=== PATIENT | female | born 1985 | race Caucasian/White ===

== ENCOUNTER 2019-12-27 09:25 | Inpatient (IN) | payer MEDICAID, SELFPAY ==
[2019-12-27] VITALS (18 sets, daily range): BP systolic 98–120; BP diastolic 45–81; PULSE 68–101; RESP 16–18; TEMP 36.2–37.1; O2SAT 95–100; BMI 37.3
--- NOTE | 2019-12-27 10:17 | PM.HP ---
Providers/Chief Complaint Admitting Physician: Win Bonds MD Chief Complaint: ob triage History of Present Illness Jyoti Allen is a 34 year old female who is a 10 para 5 with 4 SAB and 5 living children. This patient began care for this in mid October to see this physician. This was a late entry into care. At that time she was found to be very large and follow-up ultrasound demonstrated a twin . Ultrasound done on 12/23/2019 demonstrated twins with twin A being 34 weeks and 3 days and twin B at 34 weeks and 4 days. The patient had no idea when her last menstrual period truly was. She began having increased discomfort about 2 days ago. This seemed to come and go. And then again yesterday they were little stronger off and on through the day. This morning around 530 she began having increasing pain and discomfort and was brought to the [facility] Labor and Delivery department. Upon arrival, she was found to be approximately 5 cm dilated. At the time of ultrasound the ultrasound listed her cervix to be closed and about 4-1/2 cm in length. She is edvin irregularly and has mild discomfort from this. Presently the twins look good on the monitor. She does have a history of previous section for distress in January 2019. Secondary to previous section a repeat section has been discussed with the patient and spouse. Review of Systems Const: Reports: fatigue; Denies: fever, chills, change in appetite or change in weight Card: Reports: edema (Mild edema of ankles.); Denies: chest pain, palpitations or irregular heart rhythm Resp: Denies: shortness of breath or productive cough GI: Reports: abdominal pain (Contractions off and on.); Denies: nausea, vomiting or heartburn/indigestion : Reports: pelvic pain ( and having contractions.) Musc: Denies: neck pain or back pain Neuro: Denies: headache, weakness in extremities, difficulty walking or difficulty communicating thoughts Psych: Reports: anxiety (Mild.) Endo: Denies: excessive urination, excessive thirst or tired all the time PFS Acute Female Reproductive History: : 13 Vitals/I&O/Wt Last Vital Signs Pulse 101 H 12/27/19 09:43 BP 120/81 12/27/19 09:43 Weight last 48 hrs Weight 107.955 kg Physical Exam Const: COMMON NORMALS: no apparent distress, average body habitus, oriented x3 and well nourished HENMT: COMMON NORMALS: moist oral mucous membranes Neck/C-Spine: COMMON NORMALS: full ROM and no lymphadenopathy Chest: COMMONS NORMALS: inspection of chest normal Resp: COMMON NORMALS: normal respiratory effort, no retractions, no use of accessory muscles and clear to auscultation bilaterally Cardio: COMMON NORMALS: no JVD, regular rate, regular rhythm, S1 normal heart sound, S2 normal heart sound, no murmurs and peripheral pulses 2+ throughout GI: INSPECTION: Yes other (Patient is with a fundal height around 38 cm.) : OB/EXTERNAL & SPECULUM: external exam normal; no bleeding MANUAL OB EXAM: dilated 5 cm, effaced 75% and station -1 Back/Pelvis: COMMON NORMALS: no CVA tenderness Extremity: COMMON NORMALS: normal to inspection, full ROM and no calf tenderness; negative for no pedal edema Neuro: COMMON NORMALS: oriented x3, CN's II-XII intact bilaterally, moves all extremities, no focal motor deficits and no sensory deficits noted Psych: COMMON NORMALS: mental status grossly normal, thought process normal, cooperative and affect normal Skin: GENERAL SKIN EXAM: no rashes or lesions noted A&P Assessment and plan (1) Twin in third trimester: Patient just found out last week that she was having twins. She has no definite idea of how far along her is. She was a late entry into care with us her first visit to this physician being on November 19. She has been noncompliant with follow-up visits. She has been seen a total of 3 times during this . She has a previous section and desires a tubal ligation. Status: Acute (2) Active labor: Patient's contractions became more intense early this morning around 5:30 AM. Presently, it appears she is in active labor at 5 cm dilated and we will probably proceed with repeat section. Maternal blood type is O+ with antibody screen negative. The remainder of the lab work was normal including negative drug screen. Dr. Stephen has been consulted for assistance in providing the section. Status: Acute Attestations Medical Necessity Statement*: This patient is with twins in active labor. She is going to require repeat section and she requires inpatient hospitalization. I expect her hospital stay to probably be greater than 2 midnights. Time Spent in Patient Care: 16 - 35 minutes Coding Level of Care Code Acute Design Technology Professor for Chg Fwd Exam Comprehensive Diagnoses Twin in third trimester O30.003 Active labor O60.10X0
[2019-12-27] MEDS: lactated ringers 1,000 ML 999 ML IV (10:20)
[2019-12-27] MEDS: metoclopramide 5 mg/mL SDV 2 mL 10 MG IVP (10:23)
[2019-12-27] MEDS: famotidine 20 mg/2 mL INJ IVP (10:24)
[2019-12-27] MEDS: citric acid-sodium citrate 30 mL UDC PO (10:24)
[2019-12-27 10:35] LABS: Basophils % 0.3 %; Eosinophils % 0.2 %; Hematocrit 39.4 % (37.0-47.0); Hemoglobin 13.2 g/dL (11.5-15.3); Lymphocytes # 1.7 10^3/uL (0.8-4.8); Lymphocytes % 12.5 %; Mean Corpuscular HGB Conc 33.5 g/dL (30.0-36.0); Mean Corpuscular Hemoglobin 31.7 pg (28.0-34.0); Mean Corpuscular Volume 94.5 fL (81-99); Mean Platelet Volume 10.6 fL (7.4-10.4); Monocytes # 0.6 10^3/uL (0.2-0.9); Monocytes % 4.2 %; Neutrophils # 10.9 10^3/uL (1.8-7.7); Neutrophils % 82.3 %; Nucleated Red Blood Cells % 0 %; Platelet Count 134 10^3/cmm (130-400); Red Blood Count 4.17 10^6/uL (4.1-5.3); Red Cell Distribution Width 13.5 % (12.1-15.1); White Blood Count 13.2 10^3/uL (4.0-10.0)
--- NOTE | 2019-12-27 10:39 | P.ANESASSM_ITS ---
Pre-Anesthetic Assessment Pre-Anesthetic Assessment: Height/Weight: Height 1.7 m Weight 107.955 kg Pulse BP 101 H 120/81 12/27/19 09:43 12/27/19 09:43 Preop Diagnosis: prior c section Familial anesthetic complications: none Was Beta Johny taken within 24 hours: N/A (0000) Last Intake: 00:00 Social: Pack years: 1 pack/day Exam: Pre-Anes Outpt Exam: alert, oriented x 3, clear to auscultation bilaterally and regular rate & rhythm Airway: Submandibular: WNL Cervical ROM: WNL MP: 2 Dentition: Chipped and Loose History/ROS: No significant history except as noted and No significant complaints Pulmonary: Pulmonary: None reported CV/HEM: CV/HEM: None reported : : None reported Hepatic: Hepatic: None reported GI: GI: None reported Metabolic: Metabolic: None reported Musc/skel: Musc/skel: None reported Neuropsych: Neuropsych: None reported Anesthetic Plan: ASA status: 2 Anesthesia: Anesthesia Evaluation and Regional (specify below) Risk of > 500 ml blood loss (7ml/kg in children): No Meds/Allergies Current Medications: Current Medications Generic Name Dose Route Start Last Admin Trade Name Freq PRN Reason Stop Dose Admin Lactated Ringer's 1,000 mls @ 999 m ls/hr 12/27/19 09:51 12/27/19 10:20 Lactated Ringers IV 12/27/19 10:51 999 mls/hr .Q1H1M ONE Administration PFSH Anesthesia Female Reproductive History: : 13 Data Anesthesia CBC & Chem 7: 12/27/19 10:11 Other Labs: Laboratory Results - last 48 hr 12/27/19 10:11 WBC 13.2 H RBC 4.17 Hgb 13.2 Hct 39.4 MCV 94.5 MCH 31.7 MCHC 33.5 RDW 13.5 Plt Count 134 MPV 10.6 H Neut % (Auto) 82.3 Lymph % (Auto) 12.5 [place] % (Auto) 4.2 Eos % (Auto) 0.2 Baso % (Auto) 0.3 Neut # (Auto) 10.9 H Lymph # (Auto) 1.7 [place] # (Auto) 0.6 Eos # (Auto) 0.0 Baso # (Auto) 0.0 Nucleated RBC % (auto) 0 Nucleated RBCs # 0.0 Cardiac Studies: No Data to Display
[2019-12-27 10:46] LABS: Amphetamines Screen Urine Negative (Negative); Barbiturates Screen Urine Negative (Negative); Benzodiazepines Screen Urine Negative (Negative); Cocaine Screen Urine Negative (Negative); Opiate Screen Urine Negative (Negative); PCP Screen Urine Negative (Negative); THC Screen Urine Negative (Negative)
--- NOTE | 2019-12-27 12:20 | PM.OP ---
Operative Report Date of procedure: December 27, 2019 Pre-op Diagnosis: prior c section, desires sterilization, twin gestation Post-op diagnosis: same Procedure Done: 1. Repeat low transverse section 2. Bilateral tubal ligation, intraoperative Specimens removed/disposition: 1. Baby A, who is 5 pounds 15 ounces Apgars of 8 and 9, male 2. Baby B who weight was 5 pounds 8 ounces with Apgars of 9 and 9, female 3. 2 placentas with three-vessel cords delivered intact 4. Bilateral fallopian tube segments with the right segment being tagged Pathology: other Pathology: Bilateral fallopian tube segments with the right segment being tagged Both placentas with amniotic sac Surgeon: Db Stephen Patented Hogshead Assembler: Win Bonds Anesthesia: Other (Spinal) Estimated blood loss (mL): 600 Complications: None Condition: stable Disposition: floor Brief History: See history and physical dictated by Dr. Bonds Procedure: The patient was brought back to the operating room where she was prepped and draped in usual sterile fashion. Anesthesia was found to be adequate. A lower transverse skin incision was then made with a #10 blade. I then dissected down to the underlying subcutaneous tissue until arriving at the prerectal fascia. The fascia was then nicked with the scalpel bilaterally. The fascial incisions were then carried laterally with Sanchez scissors. Attention was then turned to the superior aspect of the incision which was grasped with kochers and tented up away from the underlying rectus abdominis muscles. The muscles were then dissected away from the fascia manually, and later with Sanchez scissors. Attention was then turned to the inferior aspect of the incision, and the fascia was dissected away from the underlying muscle in similar fashion. The rectus abdominis muscles were then spread manually. The peritoneum was entered manually. Excellent visualization of the uterus was noted. A lower transverse uterine incision was then made with a #10 blade. Upon arriving at the intrauterine cavity, the uterine incision was then extended manually. The amniotic sac of baby A was ruptured with an Allis. The infant was noted to be in vertex position. The baby was delivered without difficulty. After delivery of the head, the mouth and nose were suctioned at the site of the incision. There was no meconium. There was no nuchal cord. The baby was then handed to the waiting nurses. The amniotic sac of baby B was then ruptured. Her head was delivered without difficulty. Her mouth and nose was suctioned. The remainder of the body was then delivered and placed on the abdomen. The cord was cut and clamped. The baby was then handed to the waiting nurse. Both placentas were removed intact. The uterus was externalized. The intrauterine cavity was cleansed of any remaining debris. The uterine incision was reapproximated in 2 layers. The first layer was performed with 0 Vicryl in a running locked stitch. The second layer was an imbricating stitch also using 0 Vicryl. Attention was then turned to the right fallopian tube which was ligated cut and cauterized in a modified Josefina fashion with 0 chromic. Attention was then turned to the left fallopian tube which was also ligated cut and cauterized in similar fashion. The uterine incision was once and examined. Oozing was noted on the left portion of the uterine incision. A single [id number] stitch was then performed with 0 Vicryl. Excellent hemostasis was noted. The uterus was replaced into the abdomen. The peritoneum was then irrigated with warm saline. I reexamined the uterine incision and found it to be hemostatic. The rectus abdominis muscles were then reapproximated using 0 Vicryl in a running stitch. The fascia was then reapproximated using 0 Vicryl in running stitch. The subcutaneous tissue was then reapproximated using 0 Vicryl in a running stitch. The skin was reapproximated using 4-0 Vicryl in a subcuticular stitch. Benzoin and Steri-Strips were placed.. A sterile dressing was placed. All counts were correct x2. Both the mother and baby were in stable condition.
--- NOTE | 2019-12-27 17:19 | PC.NURSE ---
DFS CALL MADE DUE TO LACK OF CARE, ONLY SAW DR SOLER TWICE AND JUST FOUND OUT THAT THEY WERE HAVING TWINS SUNDAY.
[2019-12-27] MEDS: docusate sodium 100 mg Capsule PO (17:31)
[2019-12-27] MEDS: ketorolac 30 mg/mL INJ IVP (17:31)
[2019-12-27] MEDS: ferrous sulfate EC 325 mg Tablet PO (17:31)
[2019-12-27] MEDS: dextrose 5%-lactated ringers 1,000 ML 125 ML IV (17:31)
[2019-12-28 01:01] LABS: Hemoglobin 11.4 g/dL (11.5-15.3); Mean Corpuscular HGB Conc 34.5 g/dL (30.0-36.0); Mean Corpuscular Volume 92.7 fL (81-99); Mean Platelet Volume 10.9 fL (7.4-10.4); Platelet Count 93 10^3/cmm (130-400); Red Blood Count 3.56 10^6/uL (4.1-5.3); Red Cell Distribution Width 13.3 % (12.1-15.1); White Blood Count 9.4 10^3/uL (4.0-10.0)
[2019-12-28 05:11] VITALS: BP 95/59; PULSE 80; RESP 16; TEMP 36.8; O2SAT 96
--- NOTE | 2019-12-28 08:24 | ANE.PACU2 ---
 Inpatient post-anesthesia follow up: Airway intact: Yes Vital signs: Temperature 98.3 F Pulse Rate 80 Respiratory Rate 16 Blood Pressure 95/59 Pulse Oximetry 96 Oxygen Delivery Me thod Room Air Oxygen Flow Rate Fraction of Inspir ed Oxygen Hydration adequate: Yes Nausea and vomiting: No Mental status: Baseline Additional Comments: no lower extremity weaknes, no signs of infection at site, no headaches
--- NOTE | 2019-12-28 08:25 | PM.OBGYPN ---
FRONT DESK COORDINATOR Subjective Subjective: Interval history: She is in no acute distress Lungs are clear auscultation bilaterally Her heart has a regular rate and rhythm Her fundus is below the umbilicus and firm Her dressing is clean, dry and intact Her extremities have trace edemaThe patient is doing very well. She has had minimal bleeding. She has been getting up and ambulating. She is been breast-feeding well. She has had no complaints. Labor: Station: -1 Amniotic Membrane Status: Intact Monitor Mode: External Contraction Pattern: Regular Vitals/I&O/Wt Last Vital Signs Temp 98.3 F 12/28/19 05:11 Pulse 80 12/28/19 05:11 Resp 16 12/28/19 05:11 BP 95/59 12/28/19 05:11 Pulse Ox 96 12/28/19 05:11 12/27/19 12/28/19 12/28/19 22:59 06:59 14:59 Intake Total 2152.083 / 4152.083 1397.917 / 5550.000 Output Total 410 / 1160 3100 / 4260 Balance 1742.083 / 2992.083 -1702.083 / 1290.000 Weight last 48 hrs Weight 238 lb Physical Exam Narrative: EXAM NARRATIVE: She is in no acute distress Lungs are clear auscultation bilaterally Her heart has a regular rate and rhythm Her fundus is below the umbilicus and firm Her dressing is clean, dry and intact Her extremities have trace edema Urinary Catheter Management^: Cantor: Cath Placed During This Visit: yes, but has since been removed by the nurse Reason for Continuing Indwelling Catheter: Decision to DC Catheter Urinary Catheter Date of Insertion: 12/27/19 Urinary Catheter Time of Insertion: 11:05 Date Urinary Catheter Removed: 12/28/19 Time Urinary Catheter Discontinued: 05:11 Data : 12/28/19 00:16 A&P Assessment and plan (1) Twin in third trimester: Status: Acute (2) Status post : Status: Acute (3) Thrombocytopenia affecting : This is probably not clinically significant. We will recheck a CBC on her in the morning to make sure that has not progressive. Status: Acute Attestations Medical Necessity Statement*: I anticipate the patient will have a routine post hospital stay and will be discharged tomorrow morning as long as her CBC does not show marked change in her platelet counts. Coding Level of Care Code Acute Access Specialist for Chg Fwd Diagnoses Twin in third trimester O30.003 Status post Z98.891 Thrombocytopenia affecting O99.119; D69.6
[2019-12-28] MEDS: ferrous sulfate EC 325 mg Tablet PO (09:26)
[2019-12-28] MEDS: docusate sodium 100 mg Capsule PO ×2 (09:26→18:20)
[2019-12-28] MEDS: prenatal vitamin Capsule 1 CAP PO (09:26)
[2019-12-28 09:29] VITALS: BP 115/77; PULSE 80; RESP 16; TEMP 36.6
--- NOTE | 2019-12-28 14:10 | PC.NURSE ---
DFS worker called in to room to speak with mom, Jazlyn states that there will be a group meeting with her supervisor of communications tomorrow at some point in the hospital before mom and babies can be discharged.
[2019-12-28 16:32] VITALS: BP 112/74; PULSE 81; RESP 16; TEMP 36.5
[2019-12-28 21:26] VITALS: BP 113/78; PULSE 86; RESP 16
[2019-12-29 03:45] VITALS: BP 128/75; PULSE 62; RESP 16; TEMP 36.4
[2019-12-29 05:24] LABS: Basophils % 0.3 %; Eosinophils # 0.1 10^3/uL (0.0-0.8); Eosinophils % 1.2 %; Hematocrit 33.7 % (37.0-47.0); Hemoglobin 10.9 g/dL (11.5-15.3); Lymphocytes # 1.4 10^3/uL (0.8-4.8); Lymphocytes % 20.1 %; Mean Corpuscular HGB Conc 32.3 g/dL (30.0-36.0); Mean Corpuscular Hemoglobin 31.4 pg (28.0-34.0); Mean Corpuscular Volume 97.1 fL (81-99); Mean Platelet Volume 10.4 fL (7.4-10.4); Monocytes # 0.4 10^3/uL (0.2-0.9); Monocytes % 5.5 %; Neutrophils % 72.3 %; Nucleated Red Blood Cells % 0 %; Platelet Count 106 10^3/cmm (130-400); Red Blood Count 3.47 10^6/uL (4.1-5.3); Red Cell Distribution Width 13.8 % (12.1-15.1); White Blood Count 6.9 10^3/uL (4.0-10.0)
[2019-12-29] MEDS: prenatal vitamin Capsule 1 CAP PO (09:01)
[2019-12-29] MEDS: docusate sodium 100 mg Capsule PO (09:01)
[2019-12-29] MEDS: fluoxetine 20 mg Capsule PO (09:02)
--- NOTE | 2019-12-29 09:30 | PM.OBGYDC ---
Discharge Providers CUSTOMER SALES DISTRIBUTOR Date of Admission: 12/27/19 09:25 Date of Discharge: 12/29/19 Attending Provider at Admission: Win Bonds MD Attending Provider at Discharge: Db Stephen MD Primary Care Provider: Win Bonds MD Diagnoses at Discharge Discharge Diagnosis (1) Twin in third trimester: Status: Acute (2) Status post : Status: Acute (3) Thrombocytopenia affecting : Status: Acute Reason for Visit Reason for Visit: Reason For Visit: ob triage Hospital Course Hospital Course: The patient is a 34-year-old multigravida female who has a known twin with late care. As such her actual gestational age was unknown. She presented to the hospital in active labor with the cervix being dilated to 5 cm. She was assumed to be around 35 to 37 weeks range. Because she decided to have a due to a previous , we elected to proceed with a . The was unremarkable. The twins were delivered and cared for by Dr. Bonds. Her course was also unremarkable. Her bleeding was within normal limits. She ambulated without difficulty. Her pain was well controlled. She both breast-fed and bottle-fed the babys. She also did have some mild thrombocytopenia which was improving on the last day of her hospitalization. Physical Exam Narrative: EXAM NARRATIVE: She is in no acute distress Lungs are clear auscultation bilaterally Her heart has a regular rate and rhythm Her fundus is below the umbilicus and firm Her dressing is clean, dry and intact Her extremities have trace edema Urinary Catheter Management^: Cantor: Cath Placed During This Visit: yes, but has since been removed by the nurse Reason for Continuing Indwelling Catheter: Decision to DC Catheter Urinary Catheter Date of Insertion: 12/27/19 Urinary Catheter Time of Insertion: 11:05 Date Urinary Catheter Removed: 12/28/19 Time Urinary Catheter Discontinued: 05:11 Discharge Data Data Completed and Pending: Pending at discharge Category Date Time Status Pathology: Surgic al [PTH] Routine Pth 12/27/19 13:53 Ordered Pathology: Surgic al [PTH] Routine Pth 12/28/19 08:32 Ordered Labs from last 24 hours 12/29/19 05:07 WBC 6.9 RBC 3.47 L Hgb 10.9 L Hct 33.7 L MCV 97.1 MCH 31.4 MCHC 32.3 RDW 13.8 Plt Count 106 L MPV 10.4 Neut % (Auto) 72.3 Lymph % (Auto) 20.1 [place] % (Auto) 5.5 Eos % (Auto) 1.2 Baso % (Auto) 0.3 Neut # (Auto) 5.0 Lymph # (Auto) 1.4 [place] # (Auto) 0.4 Eos # (Auto) 0.1 Baso # (Auto) 0.0 Nucleated RBC % (a uto) 0 Nucleated RBCs # 0.0 Vitals: Last Vital Signs Temp 97.5 F L 12/29/19 03:45 Pulse 62 12/29/19 03:45 Resp 16 12/29/19 03:45 BP 128/75 12/29/19 03:45 Pulse Ox 96 12/28/19 05:11 Discharge Plan Discharge Patient Disposition: Home, Self-Care Condition: Stable Prescriptions: New hydrocodone-acetaminophen 5-325 mg Tablet 1 - 2 tab PO Q6H PRN (Reason: Moderate To Severe Pain) Qty: 20 RF: 0 fluoxetine 20 mg Capsule 20 mg PO DAILY Qty: 30 RF: 0 Continued Multi 27-800 mg-mcg Tablet 1 tab PO DAILY Qty: 90 RF: 0 Discharge Orders: Discharge Order (Routine); Ordered 12/29/19 Ordered By: Db Stephen Referrals: Win Bonds MD [Primary Care Provider] - 6 Weeks Db Stephen MD [Physician] - 7-10 days Discharge Diet: Regular Discharge Activity: Limit activity as instructed Patient Instructions: Vitamins (By mouth), OB - Michelle, OB Discharge Report, OB Food/Drug Interaction Guide, OB Care at Home, OB Home Care, OB Proud Parent Packet Discharge Attestations CUSTOMER SALES DISTRIBUTOR Time Spent in Discharge Care*: less than 30 min Time Spent in Smoking Cessation: Time spent discussing smoking cessation with patient: 3 to 10 minutes Coding Level of Care Code Acute Surgical Rn for Chg Fwd Diagnoses Twin in third trimester O30.003 Status post Z98.891 Thrombocytopenia affecting O99.119; D69.6
[2019-12-29 11:00] VITALS: BP 123/73; PULSE 84; TEMP 36.6; O2SAT 97
== END 2019-12-29 11:52 | disposition home or self-care (01) | DRG 785 ==
PROVIDERS: Admitting Provider Family Medicine; Family Provider Family Medicine; PCP Family Medicine; Visit Provider Family Medicine
PROC: 10D00Z1 Extraction of Products of Conception, Low, Open Approach (ICD-10-PCS; CPT 59514; principal; 2019-12-27 11:15)
DX: O99.12 Other diseases of the blood and blood-forming organs and certain disorders involving the immune mechanism complicating childbirth (principal); Z37.2 Twins, both liveborn; O34.211 Maternal care for low transverse scar from previous cesarean delivery; N85.8 Other specified noninflammatory disorders of uterus; Z30.2 Encounter for sterilization; Z3A.35 35 weeks gestation of pregnancy
CPT/HCPCS: 12345; 36415; 51702; 59025; 59409; 80306; 85025; 85027; 88302; 88307; 96375; 99211; J0690; J1885; J2274; J2370; J2405; J2590; J2765; J3010; J3490